=== PATIENT | female | born 1990 | race African-American/Black ===

== ENCOUNTER 2017-01-12 17:14 | Emergency (ER) | payer MEDICAID ==
--- NOTE | 2017-01-12 18:29 | ED Physician Documentation ---
History of Present Illness - Stated complaint Stated Complaint: LUMP UNDER BOTH ARMS - Chief complaint Chief Complaint: General - History obtained from History obtained from: Patient - History of Present Illness Timing: Other (26-year-old woman is new to the area. She "got wasted" 4 weeks ago and had unprotected sex. She's not worried about because she has Implanon. Starting 3 weeks ago she developed a painful lump on her labia. She does have a history of recurrent abscesses in the armpits, from her description she may have a history of hidradenitis suppurtiva, she does recognize the term. She was maintained on doxycycline for a while and saw a chief business development officer. This was not locally.) Review of Systems Constitutional: denies: Fever, Chills Cardiac: denies: Chest pain / pressure, Palpitations Respiratory: denies: Dyspnea, Cough GI: denies: Abdominal Pain, Nausea, Vomiting PD PAST MEDICAL HISTORY - Past Medical History Cardiovascular: None Respiratory: None Neuro: None Endocrine/Autoimmune: None GI: None CAR RESTORER: None : None HEENT: None Psych: None Musculoskeletal: None Derm: Other - Past Surgical History Past Surgical History: Yes General: Other - Present Medications Home Medications: Ambulatory Orders Medication Instructions Recorded Confirmed Doxycycline Monohydrate 100 mg PO BID #20 tablet 01/12/17 Ibuprofen [Motrin] 800 mg PO Q8H PRN #30 tablet 01/12/17 - Allergies Allergies/Adverse Reactions: Allergies Allergy/AdvReac Type Severity Reaction Status Date / Time No Known Drug Allergies Allergy Verified 01/12/17 17:28 - Social History Does the pt smoke?: Yes Does the pt drink ETOH?: Yes ETOH Use: Liquor Does the pt have substance abuse?: Yes Substance Use and Type: Marijuana - Immunizations Immunizations are current?: No - POLST Patient has POLST: No PD ED PE NORMAL - Vitals Vital signs reviewed: Yes - General General: Alert and oriented X 3, No acute distress - Abdomen Abdomen: Soft, Non tender - Derm Derm: Other (Exam done with Romana PARIS present and chaperoning. She has obvious hidradenitis suppurativa in both axilla with numerous small abscesses and fistula tracks and scar tissue and also on the right side of the mons pubis. She did request STDs exams. She had no bimanual tenderness, but there was some thin white discharge.) - Neuro Neuro: Alert and oriented X 3, Normal speech - Psych Psych: Normal mood, Normal affect Results - Vitals Vitals: Vital Signs - 24 hr 01/12/17 17:24 Temperature 37.1 C Heart Rate 69 Respiratory 16 Rate Blood Pressure 139/90 H O2 Saturation 100 Oxygen O2 Source Room air - Labs Labs: Microbiology 01/12/17 18:45 Wet Prep - Final Genital - Cervix 01/12/17 18:45 JA Preparation - Final Fluid - Cervix Departure - Departure Disposition: Home, Self Care Clinical Impression: Hidradenitis suppurativa Condition: Good Record reviewed to determine appropriate education?: Yes Instructions: Hidradenitis Suppurativa Follow-Up: [facility] [Provider Group] - Within 1 week Prescriptions: Doxycycline Monohydrate 100 mg PO BID #20 tablet Ibuprofen [Motrin] 800 mg PO Q8H PRN #30 tablet PRN Reason: PAIN &/OR FEVER Comments: Your blood pressure was elevated today on check in to the emergency department. This does not mean that you have hypertension, it is a common phenomenon to check into the emergency department and have elevated blood pressure. I recommend that you see your primary care physician within the week to have it rechecked when you're feeling better.
[2017-01-12] MEDS ORDERED: IBUPROFEN 800 MG TABLET PO ONE (18:59)
[2017-01-12] MEDS ORDERED: DOXYCYCLINE 100 MG TABLET PO ONE ×2 (18:59)
[2017-01-12] MEDS: DOXYCYCLINE 100 MG TABLET PO STA (19:02)
[2017-01-12] MEDS: IBUPROFEN 800 MG TABLET PO STA (19:02)
[2017-01-12 19:42] VITALS: BP 135/73
[2017-01-14 11:41] LABS: C.TRACHOMATIS BY TMA Negative (Negative); N.GONORRHOEAE BY TMA Negative (Negative)
--- NOTE | 2017-02-03 19:39 | ED Physician Documentation ---
ED Addendum - Addendum Addendum: 02/03/17 19:38 Called in- having some trouble with folloupw, needed refill on doxy. Called in rx for doxy 100mg PO BID #20.
== END 2017-01-12 19:41 | disposition home or self-care (01) ==
LOC: ED 17:14
DX: L73.2 Hidradenitis suppurativa (principal); F17.200 Nicotine dependence, unspecified, uncomplicated; R03.0 Elevated blood-pressure reading, without diagnosis of hypertension
CPT/HCPCS: 87210; 87220; 87491; 87591; 99283

== ENCOUNTER 2017-06-22 21:06 | Emergency (ER) | payer MEDICAID ==
[2017-06-22] MEDS ORDERED: LIDOCAINE 2%-EPI 1:100000 20 ML MDV ONE (22:04)
[2017-06-22] MEDS ORDERED: LIDOCAINE 2%-EPI 1:100000 20 ML MDV SUBQ STA (22:19)
[2017-06-22] MEDS ORDERED: SULFAMETH/TRIMETH DS 800/160 MG TABLET PO STA (22:19)
[2017-06-22] MEDS ORDERED: oxyCOD/ACETAMIN 5 MG/325 MG TABLET PO STA (22:19)
--- NOTE | 2017-06-22 22:23 | ED Physician Documentation ---
PD HPI SKIN - Stated complaint Stated Complaint: ABCESS UNDER R ARM - Chief complaint Chief Complaint: Wound - History obtained from History obtained from: Patient, Friend - History of Present Illness Timing - onset: How many days ago (several) Timing - duration: Days (several) Timing - details: Gradual onset Pain level max: 8 Pain level now: 8 Location: Other (R axilla) Quality / character: Painful Improved by: Other (Nothing) Worsened by (comment): COMMENT (Palpation) Associated symptoms: No: Fever Similar symptoms before: Diagnosis (Has been diagnosed with hidradenitis suppurativa, normally this is in the left axilla.) Review of Systems Constitutional: denies: Fever, Chills GI: denies: Vomiting : denies: Now EGA Skin: denies: Rash Musculoskeletal: denies: Neck pain, Back pain PD PAST MEDICAL HISTORY - Past Medical History Past Medical History: Yes Cardiovascular: None Respiratory: None Neuro: None Endocrine/Autoimmune: None GI: None DESIGNER: None : None HEENT: None Psych: None Musculoskeletal: None Derm: Other Other Past Medical History: Hydrinitis - Past Surgical History Past Surgical History: Yes General: Other - Present Medications Home Medications: Ambulatory Orders Medication Instructions Recorded Confirmed Oxycodone HCl/Acetaminophen 1 - 2 each PO Q6H PRN #14 tablet 06/22/17 [Percocet 5-325 mg Tablet] Sulfamethox/Trimeth 800/160 1 each PO BID #14 tablet 06/22/17 [Bactrim Ds 800/160] - Allergies Allergies/Adverse Reactions: Allergies Allergy/AdvReac Type Severity Reaction Status Date / Time No Known Drug Allergies Allergy Verified 06/22/17 21:13 - Social History Does the pt smoke?: Yes Does the pt drink ETOH?: Yes Does the pt have substance abuse?: Yes - Immunizations Immunizations are current?: No - POLST Patient has POLST: No PD ED PE NORMAL - Vitals Vital signs reviewed: Yes - General General: Alert and oriented X 3, No acute distress - Derm Derm: Warm and dry, No rash - Extremities Extremities: Other (Right axilla - Approximately 4 x 4 centimeter area of induration with fluctuance present. Mild overlying cellulitis.) - Neuro Neuro: Alert and oriented X 3 - Psych Psych: Normal mood, Normal affect Results - Vitals Vitals: Vital Signs - 24 hr 06/22/17 06/22/17 21:10 22:31 Temperature 37.0 C Heart Rate 109 H 99 Respiratory 17 Rate Blood Pressure 154/100 H 159/95 H O2 Saturation 100 100 Oxygen O2 Source Room air Procedures - Abscess I&D (location) Right axilla Preparation: Confirmed with ultrasound, Chlorhexadine, Lidocaine 2 %, With epi Incision: Incised with scalpel, Purulent drainage (Approximately 10 cc), Loculations broken, Packed, Culture obtained Other: Pt tolerated well, Dressing applied, Antibiotic prescribed PD MEDICAL DECISION MAKING - ED course Complexity details: considered differential, d/w patient ED course: Patient with a right axillary abscess. This was incised and drained. Wound culture sent. Tolerated well. Will place on antibiotics as well. She does have significant induration still. Will prescribe pain medication as well. Does not have a PCP and will bring her back here for repeat evaluation. Patient counseled regarding signs and symptoms for which I believe and urgent re -evaluation would be necessary. Patient with good understanding of and agreement to plan and is comfortable going home at this time This document was made in part using voice recognition software. While efforts are made to proofread this document, sound alike and grammatical errors may occur. Departure - Departure Disposition: 01 Home, Self Care Clinical Impression: Abscess Condition: Good Instructions: ED Abscess IandD Follow-Up: return,here in 2-3 days for wound check [Other] Prescriptions: Sulfamethox/Trimeth 800/160 [Bactrim Ds 800/160] 1 each PO BID #14 tablet Oxycodone HCl/Acetaminophen [Percocet 5-325 mg Tablet] 1 - 2 each PO Q6H PRN # 14 tablet PRN Reason: pain Comments: Take all antibiotics until gone. Return if you worsen, otherwise return here in 2-3 days for wound check. Do not drink alcohol or drive while on narcotic pain medicine. Note that many narcotic pain relievers also contain tylenol/acetaminophen. Please ensure that your total dose of acetaminophen from all sources does not exceed 3 grams (3000mg) per day. You may constipated on this medication, take a stool softener such as "Colace" twice a day while you are on it. Also recommend a [id number] laxative such as senna or MiraLAX any day that you do not have a bowel movement. If you received narcotic pain medication in the emergency department, do not drive or operate machinery for the next 24 hours. Your blood pressure was elevated today on check in to the emergency department. This does not mean that you have hypertension, it is a common phenomenon to check into the emergency department and have elevated blood pressure. I recommend that you see your primary care physician within the week to have it rechecked when you're feeling better. Discharge Date/Time: 06/22/17 22:32
[2017-06-22] MEDS ORDERED: SULFAMETH/TRIMETH DS 800/160 MG TABLET PO ONE (22:30)
[2017-06-22] MEDS ORDERED: oxyCOD/ACETAMIN 5 MG/325 MG TABLET PO ONE (22:31)
[2017-06-22 22:32] VITALS: BP 159/95
== END 2017-06-22 22:32 | disposition home or self-care (01) ==
LOC: ED 21:06
DX: L02.411 Cutaneous abscess of right axilla (principal); L03.111 Cellulitis of right axilla; F17.200 Nicotine dependence, unspecified, uncomplicated; R03.0 Elevated blood-pressure reading, without diagnosis of hypertension
CPT/HCPCS: 10060; 87070; 87077; 87181; 87205; 99283; A9270